=== PATIENT | female | born 1975 | race Caucasian/White ===

== ENCOUNTER 2019-07-23 16:56 | Emergency (ER) | payer SELFPAY ==
[2019-07-23] MEDS ORDERED: Lidocaine 1% 10 ML MDV INJECT ONE (17:49)
[2019-07-23] MEDS ORDERED: Diphtheria,Pertussis(Acell),Tetanus Vaccine 0.5 ML Syringe IM ONE (17:49)
--- NOTE | 2019-07-23 17:55 | EDM.PDOC ---
ED HPI GENERAL MEDICAL PROBLEM - General Chief Complaint: Bite:Animal, Insect Stated Complaint: DOG BITE Time Seen by Provider: 07/23/19 17:39 Source of Information: Reports: Patient, RN Notes Reviewed History Limitations: Reports: No Limitations - History of Present Illness INITIAL COMMENTS - FREE TEXT/NARRATIVE: Patient is a 43-year-old female who presents to the ED for evaluation of a dog bite of her right forearm. Patient notes that they are fostering a dog, and she was trying to break up a dogfight that resulted between their dog and this foster dog. Patient notes that both animals are up-to-date on their vaccinations. The patient was bit on the right forearm, she has one 1 cm wound to the volar aspect and one 1 cm wound to the dorsal aspect of her forearm. Patient notes that she is not sure of her last tetanus vaccination. Patient states she is still able to move her wrist, but is somewhat painful to do so, pulses are good, she has no numbness or tingling distal to the injury. Patient is right-hand dominant. Right Wrist Pain Score (Numeric/FACES): 5 - Related Data Allergies Allergy/AdvReac Type Severity Reaction Status Date / Time No Known Allergies Allergy Verified 07/23/19 17:29 Home Meds: Home Meds Amoxicillin/Clavulanate K [Augmentin 875-125 MG] 1 tab PO BID #14 tablet [Rx] Citalopram [Citalopram HBr] 10 mg PO DAILY 07/23/19 [History] Levothyroxine 112 mcg PO ACBREAKFAST 07/23/19 [History] metFORMIN [Glucophage] 1,000 mg PO BIDMEALS 07/23/19 [History] ED ROS GENERAL - Review of Systems Review Of Systems: Comprehensive ROS is negative, except as noted in HPI. Musculoskeletal: Denies: Joint Pain (no Right wrist pain) Skin: Reports: Wound (see HPI) Neurological: Denies: Numbness, Tingling ED EXAM, ANIMAL BITE - Physical Exam Exam: See Below Exam Limited By: No Limitations General Appearance: Alert, WD/WN, No Apparent Distress Respiratory/Chest: No Respiratory Distress, Lungs Clear, Normal Breath Sounds, No Accessory Muscle Use, Chest Non-Tender Cardiovascular: Normal Peripheral Pulses, Regular Rate, Rhythm, No Edema, No Murmur Peripheral Pulses: 3+: Radial (L), Radial (R) Extremities: Normal Inspection (with exception of lacerations), Normal Range of Motion, Normal Capillary Refill Neurological: Alert, Oriented, Normal Cognition, No Motor/Sensory Deficits Psychiatric: Normal Affect, Normal Mood Skin Exam: Normal Color, Warm/Dry, Other (2 wounds, one 1 cm laceration to the right dorsal and right anterior forearm. No active bleeding appreciated.) ED ANIMAL BITE PROCEDURES - Laceration/Wound Repair Right Anterior Distal Arm Lac/Wound Length In cm: 1 Appearance: Subcutaneous, Linear, Mildly Contaminated Distal NVT: Neuro & Vascular Intact, No Tendon Injury Anesthetic Type: Local Local Anesthesia - Lidocaine (Xylocaine): 1% Plain Local Anesthetic Volume: 3cc Skin Prep: Chlorhexidine (Hibiciens), Saline Exploration/Debridement/Repair: Wound Explored, In a Bloodless Field, Explored to Base, No Foreign Material Found Closed With: Sutures Suture Size: 5-0 # of Sutures: 3 Sterile Dressing Applied: Nurse Tetanus Status Addressed: Yes (pt received update to [facility] today) Complications: No Right Posterior Distal Arm Lac/Wound Length In cm: 1 Appearance: Subcutaneous, Mildly Contaminated Distal NVT: Neuro & Vascular Intact, No Tendon Injury Anesthetic Type: Local Local Anesthesia - Lidocaine (Xylocaine): 1% Plain Local Anesthetic Volume: 3cc Skin Prep: Chlorhexidine (Hibiciens), Saline Exploration/Debridement/Repair: Wound Explored, In a Bloodless Field, Explored to Base, No Foreign Material Found Closed With: Sutures Suture Size: 5-0 # of Sutures: 2 Sterile Dressing Applied: Nurse Tetanus Status Addressed: Yes Complications: No Course - Vital Signs Last Recorded V/S: Last Vital Signs Temp 97.8 F 07/23/19 17:30 Pulse 85 07/23/19 17:30 Resp 17 07/23/19 17:30 BP 151/98 H 07/23/19 17:30 Pulse Ox 95 07/23/19 17:30 - Orders/Labs/Meds Orders: Active Orders 24 hr Category Date Time Status Vaccines to be Administered [RC] PER UNIT ROUTINE Care 07/23/19 17:50 Ordered Meds: Medications Discontinued Medications Generic Name Dose Route Start Last Admin Trade Name Freq PRN Reason Stop Dose Admin Diphtheria/Tetanus/Acell Pertussis 0.5 ml 07/23/19 17:49 12/14/19 18:13 Adacel IM 07/23/19 17:50 0.5 ml .ONCE ONE Administration Lidocaine HCl 10 ml 07/23/19 17:49 07/23/19 18:22 Xylocaine 1% INJECT 07/23/19 17:50 10 ml ONETIME ONE Administration Departure - Departure Time of Disposition: 17:55 Disposition: Home, Self-Care 01 Condition: Fair Clinical Impression: Dog bite Qualifiers: Encounter type: initial encounter Qualified Code(s): W54.0XXA - Bitten by dog, initial encounter - Discharge Information *PRESCRIPTION DRUG MONITORING PROGRAM REVIEWED*: No *COPY OF PRESCRIPTION DRUG MONITORING REPORT IN PATIENT ANDRE: No Prescriptions: Amoxicillin/Clavulanate K [Augmentin 875-125 MG] 1 tab PO BID #14 tablet Instructions: Animal Bite, Adult, [id number] Referrals: PCP,None [Primary Care Provider] - Forms: ED Department Discharge Additional Instructions: You have been evaluated in the ED for your laceration. Sutures will need to stay in for 10 days. (08/02/19) You may return to the ED or clinic for removal. Please keep this area clean and dry, you may cleanse with regular soap and water. No vigorous scrubbing. You were given a prescription of antibiotics, Augmentin, as this was a dog bite , please take as prescribed. This antibiotic can cause some diarrhea, recommend that you take a probiotic as well while taking this, you mass the pharmacy counter to provide you with 1. Please return to ED if your symptoms change or worsen. Sepsis Event Note - Evaluation Sepsis Screening Result: No Definite Risk - Focused Exam Vital Signs: Vital Signs Temp Pulse Resp BP Pulse Ox 07/23/19 17:30 97.8 F 85 17 151/98 H 95 Date Exam was Performed: 07/23/19 Time Exam was Performed: 19:00 - My Orders Last 24 Hours: My Active Orders 07/23/19 17:50 Vaccines to be Administered [RC] PER UNIT ROUTINE - Assessment/Plan Last 24 Hours: My Active Orders 07/23/19 17:50 Vaccines to be Administered [RC] PER UNIT ROUTINE
== END 2019-07-23 19:16 | disposition home or self-care (01) ==
LOC: JD.ED 16:56
DX: S51.851A Open bite of right forearm, initial encounter (principal); Z23 Encounter for immunization; W54.0XXA Bitten by dog, initial encounter
CPT/HCPCS: 12001; 90471; 90715; 99283; J2001

== ENCOUNTER 2020-02-15 18:07 | Emergency (ER) | payer OTHER ==
--- NOTE | 2020-02-15 20:53 | EDM.PDOC ---
ED HPI GENERAL MEDICAL PROBLEM - General Chief Complaint: Abdominal Pain Stated Complaint: R SIDE ABDOMINAL PAIN Time Seen by Provider: 02/15/20 20:26 Source of Information: Reports: Patient, RN Notes Reviewed History Limitations: Reports: No Limitations - History of Present Illness INITIAL COMMENTS - FREE TEXT/NARRATIVE: Patient is a 44-year-old female who presents to the ED for the evaluation of her ongoing right-sided abdominal pain. Patient notes this is a chronic issue for her, and has been present for 4 years. Patient notes this is in the right lower quadrant, and it seems to radiate into her back at times. Patient notes she has had her appendix, gallbladder, and uterus taken out, but still retains her ovaries. She states that she does see Leigh Ann Rain as a primary care provider, and that she had a CT and recent lab work done, and everything seemed to be within normal limits, and that she was referred to a general surgeon for further management. Patient's been taking aspirin and ibuprofen for pain management but states they are just not cutting the pain any longer. She comes to the ER for pain management mostly. Patient states she is still not got any answers in 4 years on what is causing the pain. She denies any other sick-like symptoms, fever/chills, nausea/vomiting/diarrhea, states her last regular bowel movement was this morning. She does have a history of PCOS, but states they did not mention any sort of ovarian cyst on the CT yesterday. Right Lower Abdomen Pain Score (Numeric/FACES): 8 - Related Data Allergies Allergy/AdvReac Type Severity Reaction Status Date / Time No Known Allergies Allergy Verified 02/15/20 18:32 Home Meds: Home Meds Citalopram [Citalopram HBr] 10 mg PO DAILY 07/23/19 [History] Levothyroxine 112 mcg PO ACBREAKFAST 07/23/19 [History] metFORMIN [Glucophage] 1,000 mg PO BIDMEALS 07/23/19 [History] Acetaminophen/HYDROcodone [[place] 325-5 MG] 1 tab PO Q6H PRN #20 tablet 02/15/20 [Rx] Amitriptyline [Elavil] 25 mg PO DAILY 02/15/20 [History] Past Medical History Gastrointestinal History: Reports: Other (See Below) (RLQ abd pain) 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, 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 SIZER 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: polycystic ovaries Psychiatric History: Reports: Depression Endocrine/Metabolic History: Reports: Other (See Below) Other Endocrine/Metabolic History: sindi's disease - Past Surgical History GI Surgical History: Reports: Appendectomy, Cholecystectomy Female Surgical History: Reports: Section, Hysterectomy (still retains both ovaries) Endocrine Surgical History: Reports: Other (See Below) Other Endocrine Surgeries/Procedures: Partial Thyroidectomy Social & Family History - Tobacco Use Smoking Status *Q: Never Smoker - Caffeine Use Caffeine Use: Reports: Soda - Recreational Drug Use Recreational Drug Use: No ED ROS GENERAL - Review of Systems Review Of Systems: Comprehensive ROS is negative, except as noted in HPI. ED EXAM, GI/ABD - Physical Exam Exam: See Below Exam Limited By: No Limitations General Appearance: Alert, WD/WN, No Apparent Distress Throat/Mouth: Normal Inspection, Normal Lips, Normal Teeth, Normal Gums, Normal Oropharynx, Normal Voice, No Airway Compromise Head: Atraumatic, Normocephalic Neck: Normal Inspection Respiratory/Chest: No Respiratory Distress, Lungs Clear, Normal Breath Sounds, No Accessory Muscle Use, Chest Non-Tender Cardiovascular: Normal Peripheral Pulses, Regular Rate, Rhythm, No Murmur GI/Abdominal Exam: Normal Bowel Sounds, Soft, Non-Tender, No Distention, No Mass Extremities: Normal Inspection, Normal Capillary Refill Neurological: Alert, Oriented, Normal Cognition, No Motor/Sensory Deficits Psychiatric: Normal Affect, Normal Mood Skin Exam: Warm, Dry, Intact, Normal Color, No Rash Course - Vital Signs Last Recorded V/S: Last Vital Signs Temp 98 F 02/15/20 18:30 Pulse 74 02/15/20 18:30 Resp 16 02/15/20 18:30 BP 137/75 02/15/20 18:30 Pulse Ox 96 02/15/20 18:30 - Re-Assessments/Exams Free Text/Narrative Re-Assessment/Exam: 02/15/20 20:59 Patient presents to the ED for her chronic right lower abdomen pain. I do not believe repeating CT and other lab work would be of benefit tonight, I did stress to the patient that she should await for the surgeons call for further management, I will provide her with some pain medication in the meantime, to hopefully help provide her some pain relief. Patient seems to be okay with this pain at this time. She did express frustration for not having answers, unfortunately we would not be able to provide much in the way of answers as well tonight. She seems to be understanding of this at this time. Departure - Departure Time of Disposition: 20:50 Disposition: Home, Self-Care 01 Condition: Good Clinical Impression: Right sided abdominal pain - Discharge Information *PRESCRIPTION DRUG MONITORING PROGRAM REVIEWED*: Yes *COPY OF PRESCRIPTION DRUG MONITORING REPORT IN PATIENT ANDRE: No Prescriptions: Acetaminophen/HYDROcodone [[place] 325-5 MG] 1 tab PO Q6H PRN #20 tablet PRN Reason: Pain Instructions: Abdominal Pain, Adult, [id number] Referrals: Leigh Ann Rain SECURITY AND COMPLIANCE PROJECT MANAGER [Primary Care Provider] - Forms: ED Department Discharge Additional Instructions: You were evaluated in the ER today regarding your continued right-sided abdominal pain. We did not do any sort of imaging or laboratory evaluation at today's visit, as this seems to be a chronic issue for you, you will be provided with some pain medication, so you may await your call from general surgery for further evaluation. This medication will be hydrocodone/acetaminophen, 5/325mg, 1 tab every 6 hours as needed for pain relief. This medication has been electronic prescribed to the [place] [facility] in the [employer] [facility]. I highly recommend that you talk about an abdomen MRI with your primary care provider, and try your best to await call from general surgery for further management. The [facility]'s number is [phone], I do highly recommend that you call their office tomorrow, to see about the referral and/or follow-up for the general surgery consult. Please return to the ER at any time if your symptoms should change or worsen. Sepsis Event Note (ED) - Evaluation Sepsis Screening Result: No Definite Risk - Focused Exam Vital Signs: Vital Signs Temp Pulse Resp BP Pulse Ox 02/15/20 18:30 98 F 74 16 137/75 96
== END 2020-02-15 21:07 | disposition home or self-care (01) ==
LOC: JD.ED 18:07
DX: R10.31 Right lower quadrant pain (principal); F32.9 Major depressive disorder, single episode, unspecified; Z79.899 Other long term (current) drug therapy
CPT/HCPCS: 99283

== ENCOUNTER 2020-06-13 07:17 | Day surgery (SDC) | payer OTHER ==
[~2020-06-13 07:17] MED LIST: Ketamine 500 mg/10 ML MDV ONE; Lactated Ringers 1,000 ML IV SCH; Lidocaine 1% 4 ML ONE; Lidocaine 1%/Sod Bicarbonate in NS 8.4% 1 ML Syringe IDERM PRN; Propofol 200 MG/20 ML SDV ONE; Sodium Chloride 0.9% 10 ML Syringe FLUSH PRN
[2020-06-13] MEDS ORDERED: Propofol 200 MG/20 ML SDV ONE ×3 (08:12→08:39)
--- NOTE | 2020-06-13 08:14 | PCM.PREANE ---
Preanesthetic Assessment - Procedure Proposed Procedure: Colonoscopy - Anesthesia/Transfusion/Family Hx Anesthesia History: No Prior Anesthesia Family History of Anesthesia Reaction: No Additional History: No previous difficulties with anesthesia or with intubation per patient - Review of Systems General: No Symptoms Pulmonary: No Symptoms Cardiovascular: No Symptoms Gastrointestinal: No Symptoms Neurological: No Symptoms Other: Reports: None - Physical Assessment NPO Status Date: 06/13/20 (greater than 8 hours) Vital Signs: Last Vital Signs Temp 36.2 C 06/13/20 07:20 Pulse 76 06/13/20 07:20 Resp 16 06/13/20 07:20 BP 118/74 06/13/20 07:20 Pulse Ox 98 06/13/20 07:20 Height: 5 ft 6 in Weight: 112.491 kg ASA Class: 3 Mental Status: Alert & Oriented x3 Airway Class: Mallampati = 3 Dentition: Reports: Normal Dentition Thyro-Mental Finger Breadths: 3 Mouth Opening Finger Breadths: 3 ROM/Head Extension: Full Lungs: Clear to Auscultation, Normal Respiratory Effort Cardiovascular: Regular Rate, Regular Rhythm - Allergies Allergies/Adverse Reactions: Allergies Allergy/AdvReac Type Severity Reaction Status Date / Time acetaminophen [From Percocet] Allergy Itching Verified 06/12/20 11:35 oxycodone [From Percocet] Allergy Itching Verified 06/12/20 11:35 - Anesthesia Plan Pre-Op Medication Ordered: None - Acknowledgements Anesthesia Type Planned: MAC Pt an Appropriate Candidate for the Planned Anesthesia: Yes Alternatives and Risks of Anesthesia Discussed w Pt/Guardian: Yes Pt/Guardian Understands and Agrees with Anesthesia Plan: Yes PreAnesthesia Questionnaire HEENT History: Reports: None Cardiovascular History: Reports: None Respiratory History: Reports: Sleep Apnea Gastrointestinal History: Reports: GERD Genitourinary History: Reports: Renal Disease (renal cell carcinoma of right kidney with partial nephrectomy), Other (See Below) Other Genitourinary History: chronic kidney disease [employer]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 (See Below) Other OB/BYN History: PCOS Musculoskeletal History: Reports: None Neurological History: Reports: None Psychiatric History: Reports: Anxiety, Depression Endocrine/Metabolic History: Reports: Hypothyroidism Other Endocrine/Metabolic History: sindi's disease Hematologic History: Reports: None Immunologic History: Reports: None Oncologic (Cancer) History: Reports: Renal Dermatologic History: Reports: None - Infectious Disease History Infectious Disease History: Reports: None - Past Surgical History GI Surgical History: Reports: Appendectomy, Cholecystectomy Female Surgical History: Reports: Section, Hysterectomy, Nephrectomy Endocrine Surgical History: Reports: Thyroidectomy - SUBSTANCE USE Tobacco Use Status *Q: Never Tobacco User Recreational Drug Use History: No - HOME MEDS Home Medications: Home Meds Citalopram [Citalopram HBr] 20 mg PO DAILY 07/23/19 [History] metFORMIN [Glucophage] 1,000 mg PO BIDMEALS 07/23/19 [History] Acetaminophen/HYDROcodone [[place] 325-5 MG] 1 tab PO Q6H PRN #20 tablet 02/15/20 [Rx] Amitriptyline [Elavil] 25 mg PO DAILY 02/15/20 [History] Biotin 10 mg PO DAILY 06/12/20 [History] Fexofenadine [Ghada] 180 mg PO DAILY 06/12/20 [History] Iron,Carb/Vit C/Vit B12/Folic [Fe C Plus Tablet] 1 tab PO DAILY 06/12/20 [History] L.acidoph,Paracasei, B.lactis [Probiotic] 2 cap PO DAILY 06/12/20 [History] Levothyroxine 125 mcg PO DAILY 06/12/20 [History] Turmeric 2 tab PO DAILY 06/12/20 [History] Vitamin B Complex [B Complex] 1 tab PO DAILY 06/12/20 [History] - CURRENT (IN HOUSE) MEDS Current Meds: Current Medications Lactated Ringer's (Ringers, Lactated) 1,000 mls @ 125 mls/hr IV ASDIRECTED FRANK Stop: 06/13/20 23:00 Last Admin: 06/13/20 07:25 Dose: 125 mls/hr Documented by: Lidocaine/Sodium Bicarbonate (Buffered Lidocaine 1% In Ns 8.4%) 0.25 ml IDERM ONETIME PRN PRN Reason: Prior to IV Start Stop: 06/13/20 18:00 Last Admin: 06/13/20 07:25 Dose: 0.25 ml Documented by: Sodium Chloride (Saline Flush) 10 ml FLUSH ASDIRECTED PRN PRN Reason: Keep Vein Open Stop: 06/13/20 18:00 Discontinued Medications Lidocaine HCl (Xylocaine-Mpf 1%) Confirm Administered Dose 4 mls @ as directed .ROUTE .STK-MED ONE Stop: 06/13/20 07:12 Ketamine HCl (Ketalar) Confirm Administered Dose 500 mg .ROUTE .STK-MED ONE Stop: 06/13/20 07:13 Propofol (Diprivan 20 Ml) Confirm Administered Dose 400 mg .ROUTE .STK-MED ONE Stop: 06/13/20 07:12
--- NOTE | 2020-06-13 08:58 | PCM.OPNOTE ---
- General Post-Op/Procedure Note Date of Surgery/Procedure: 06/13/20 Operative Procedure(s): colonoscopy Findings: Irregular mucosa in the hepatic flexure Pre Op Diagnosis: Change in bowel habits Post-Op Diagnosis: Same Anesthesia Technique: MAC Primary Surgeon: Candice Jessica Anesthesia Provider: Ariel Quiñones Pathology: 1. Ascending and transverse colon biopsies 2. Hepatic flexure biopsies 3. Descending and sigmoid colon biopsies Fluid Replacement, Intraop: 1,000 Output, Urine Amount: 0 EBL in mLs: 0 Complications: None apparent Condition: Good
--- NOTE | 2020-06-13 09:02 | PCM.PRNOTE ---
- Free Text/Narrative Note: Operative Report Date of Surgery/Procedure: June Operative Procedure: Colonoscopy to cecum with biopsy Pre Op Diagnosis: change in bowel habits Post-Op Diagnosis: same Surgeon: Candice Jessica MD Anesthesia Technique: MAC Anesthesia Provider: Ariel Quiñones MD IV Fluid Replacement, Intraop: 1000cc Output, Urine Amount: 0cc EBL : 0cc Findings: Irregular hepatic flexure mucosa Specimens: 1. Ascending and transverse colon biopsies 2. Hepatic flexure biopsies 3. Descending and sigmoid colon biopsies Indication: The patient is a 44-year-old lady who presented to the outpatient clinic requesting evaluation of change in bowel habits. We discussed the procedure of a screening colonoscopy including the polypectomy and biopsy. Risks of bleeding and perforation were discussed, the patient understood and wished to proceed. Written and consent was obtained Description of the procedure: The patient was brought to the endoscopy suite and placed in the left lateral decubitus position. Appropriate monitors were applied. The patient was given MAC anesthesia. An anorectal examination was performed, revealing no abnormalities. The scope was placed into the rectum and advanced to cecum with some difficulty requiring application of external abdominal pressure. The patients cecum was entered, and the ileocecal valve and appendiceal orifice were identified and normal. At this point, the scope was withdrawn, paying careful attention to the mucosa. The patient had had bowel prep, allowing for visualization of 85-90% of the mucosa with suctioning. Patchy, erythematous, irregular mucosa was noted at the hepatic flexure, this was biopsied using cold biopsy forceps. Random biopsies were taken in the ascending, transverse, descending, and sigmoid colon using the cold biopsy forceps. In the rectum, the scope was retroflexed and no abnormalities were noted, except for some hemorrhoidal tissue. The scope was placed back in the lumen and the excess air was aspirated. The patient tolerated the procedure well. Complications: none apparent Condition: Good, transported to PACU in stable condition Candice Jessica MD General Surgery
--- NOTE | 2020-06-13 09:42 | PCM48HPAN ---
Post Anesthesia Note - EVALUATION WITHIN 48HRS OF ANESTHETIC Vital Signs in Normal Range: Yes Patient Participated in Evaluation: No Respiratory Function Stable: Yes Airway Patent: Yes Cardiovascular Function Stable: Yes Hydration Status Stable: Yes Pain Control Satisfactory: Yes Nausea and Vomiting Control Satisfactory: Yes Mental Status Recovered: Yes Vital Signs: Last Vital Signs Temp 36.1 C 06/13/20 08:53 Pulse 64 06/13/20 09:21 Resp 16 06/13/20 09:21 BP 114/72 06/13/20 09:21 Pulse Ox 97 06/13/20 09:21 - COMMENTS/OBSERVATIONS Free Text/Narrative:: Routine recovery post MAC/colonoscopy. Patient free to go home when nursing has completed their care.
== END 2020-06-13 09:30 | disposition home or self-care (01) ==
LOC: JD.SDS 07:17
PROVIDERS: ATTEND Surgery
DX: K63.89 Other specified diseases of intestine (principal); K64.9 Unspecified hemorrhoids; E11.9 Type 2 diabetes mellitus without complications; K21.9 Gastro-esophageal reflux disease without esophagitis; Z90.49 Acquired absence of other specified parts of digestive tract; Z88.8 Allergy status to other drugs, medicaments and biological substances; S31.109D Unspecified open wound of abdominal wall, unspecified quadrant without penetration into peritoneal cavity, subsequent encounter; X58.XXXD Exposure to other specified factors, subsequent encounter; E03.9 Hypothyroidism, unspecified; Z79.899 Other long term (current) drug therapy
CPT/HCPCS: J2001; J2704; J7120

== ENCOUNTER 2021-05-27 21:19 | Emergency (ER) | payer OTHER ==
--- NOTE | 2021-05-28 00:30 | EDM.PDOC ---
ED HPI GENERAL MEDICAL PROBLEM - General Chief Complaint: Respiratory Problem Stated Complaint: COVID+/SOB Time Seen by Provider: 05/28/21 00:28 Source of Information: Reports: Patient History Limitations: Reports: No Limitations - History of Present Illness INITIAL COMMENTS - FREE TEXT/NARRATIVE: Patient is 45-year-old female with a past medical history of Sindi's thyroiditis and renal cell carcinoma, presented to emergency room with chief complaint of shortness of breath. Patient states has been sick since last . She states she has been feeling fatigued, body aches, nausea and has had a loss of taste and smell. Patient reports that today, she received a diagnosis of COVID-19. Later in the day she became short of breath. Patient states she feels pain in the middle of her chest when she takes a deep breath. Patient denies any vomiting or diarrhea or abdominal pain. Treatments ZIPPER CUTTER: Reports: Other (see below) Other Treatments ZIPPER CUTTER: tylenol Headache Pain Score (Numeric/FACES): 8 Generalized Pain Score (Numeric/FACES): 10 Throat Pain Score (Numeric/FACES): 5 - Related Data Allergies Allergy/AdvReac Type Severity Reaction Status Date / Time acetaminophen [From Percocet] Allergy Severe Itching Verified 05/27/21 22:15 oxycodone [From Percocet] Allergy Severe Itching Verified 05/27/21 22:15 Home Meds: Home Meds Citalopram [Citalopram HBr] 20 mg PO DAILY 07/23/19 [History] metFORMIN [Glucophage] 1,000 mg PO BIDMEALS 07/23/19 [History] Amitriptyline [Elavil] 25 mg PO DAILY 02/15/20 [History] Iron,Carb/Vit C/Vit B12/Folic [Fe C Plus Tablet] 1 tab PO DAILY 06/12/20 [History] Levothyroxine 125 mcg PO DAILY 06/12/20 [History] Vitamin B Complex [B Complex] 1 tab PO DAILY 06/12/20 [History] Past Medical History HEENT History: Reports: None Cardiovascular History: Reports: None Respiratory History: Reports: Sleep Apnea Gastrointestinal History: Reports: GERD Genitourinary History: Reports: Renal Disease, Other (See Below) Other Genitourinary History: chronic kidney disease LANDS RESOURCE MANAGER History: Reports: Other (See Below) 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 [employer]S RESOURCE MANAGER History: PCOS Musculoskeletal History: Reports: None Neurological History: Reports: None Psychiatric History: Reports: Anxiety, Depression Endocrine/Metabolic History: Reports: Hypothyroidism Other Endocrine/Metabolic History: sindi's disease Hematologic History: Reports: None Immunologic History: Reports: None Oncologic (Cancer) History: Reports: Renal Dermatologic History: Reports: None - Infectious Disease History Infectious Disease History: Reports: None, Novel Coronavirus - Past Surgical History GI Surgical History: Reports: Appendectomy, Cholecystectomy Female Surgical History: Reports: Section, Hysterectomy, Nephrectomy Other Female Surgeries/Procedures: Pt had uterus removed. Endocrine Surgical History: Reports: Thyroidectomy Other Endocrine Surgeries/Procedures: Partial Thyroidectomy Social & Family History - Tobacco Use Tobacco Use Status *Q: Never Tobacco User - Caffeine Use Caffeine Use: Reports: Soda - Recreational Drug Use Recreational Drug Use: No ED ROS GENERAL - Review of Systems Review Of Systems: See Below Free Text/Narrative/Comment: In addition to that documented in the HPI above, the additional ROS was obtained: Constitutional: Denies fevers or chills Eyes: Denies vision changes ENMT: Denies sore throat CV: Denies chest pain Resp: Per HPI GI: Denies vomiting or diarrhea : Denies painful urination MSK: Denies recent trauma Skin: Denies new rashes Neuro: Denies new numbness or tingling or weakness Endocrine: Denies unexpected weight loss Heme: Denies bleeding disorders ED EXAM, GENERAL - Physical Exam Exam: See Below Free Text/Narrative:: I have reviewed the triage vital signs Const: Well nourished, well developed, appears stated age Eyes: Pupils Equal and reactive to light bilaterally, no conjunctival injection HENT: No signs of trauma or swelling, Neck supple without meningismus CV: Mild tachycardia with regular rhythm, Warm, well-perfused extremities RESP: Unlabored respiratory effort GI: soft, non-tender, non-distended, no masses MSK: No gross deformities appreciated Skin: Warm, dry. No rashes Neuro: Alert, medication specialist II-XII grossly intact. Sensation and motor function of extremities grossly intact. Psych: Appropriate mood and affect. Course - Vital Signs Last Recorded V/S: Last Vital Signs Temp 37.2 C 05/27/21 22:09 Pulse 114 H 05/27/21 22:09 Resp 24 H 05/27/21 22:09 BP 145/86 H 05/27/21 22:09 Pulse Ox 93 L 05/27/21 22:09 - Orders/Labs/Meds Orders: Active Orders 24 hr Category Date Time Status Chest 1V Frontal [CR] Stat Exams 05/28/21 00:28 Taken Labs: Laboratory Tests 05/28/21 05/28/21 05/28/21 Range/Units 00:57 00:57 00:57 WBC 5.28 (3.98-10.04) K/mm3 RBC 4.71 (3.98-5.22) M/mm3 Hgb 14.2 (11.2-15.7) gm/dl Hct 42.1 (34.1-44.9) % MCV 89.4 (79.4-94.8) fl MCH 30.1 (25.6-32.2) pg MCHC 33.7 (32.2-35.5) g/dl RDW Std Deviation 43.0 (36.4-46.3) fL Plt Count 229 (182-369) K/mm3 MPV 9.6 (9.4-12.3) fl Neut % (Auto) 59.5 (34.0-71.1) % Lymph % (Auto) 33.5 (19.3-51.7) % [place] % (Auto) 6.4 (4.7-12.5) % Eos % (Auto) 0.2 L (0.7-5.8) Baso % (Auto) 0.2 (0.1-1.2) % Neut # (Auto) 3.14 (1.56-6.13) K/mm3 Lymph # (Auto) 1.77 (1.18-3.74) K/mm3 [place] # (Auto) 0.34 (0.24-0.36) K/mm3 Eos # (Auto) 0.01 L (0.04-0.36) K/mm3 Baso # (Auto) 0.01 (0.01-0.08) K/mm3 Manual Slide Review Normal smear D-Dimer, Quantitative 0.55 H (0.19-0.50) mg/L Sodium 134 L (136-145) mEq/L Potassium 4.0 (3.5-5.1) mEq/L Chloride 99 (98-107) mEq/L Carbon Dioxide 23 (21-32) mEq/L Anion Gap 16.0 H (5-15) BUN 8 (7-18) mg/dL Creatinine 0.9 (0.55-1.02) mg/dL Est Cr Clr Drug Dosing 73.90 mL/min Estimated GFR (MDRD) > 60 (>60) mL/min BUN/Creatinine Ratio 8.9 L (14-18) Glucose 120 H (70-99) mg/dL Calcium 8.6 (8.5-10.1) mg/dL Total Bilirubin 0.3 (0.2-1.0) mg/dL AST 36 (15-37) U/L ALT 52 (14-59) U/L Alkaline Phosphatase 53 (46-116) U/L C-Reactive Protein 1.7 H* (<1.0) mg/dL Total Protein 7.5 (6.4-8.2) g/dl Albumin 3.6 (3.4-5.0) g/dl Globulin 3.9 gm/dL Albumin/Globulin Ratio 0.9 L (1-2) Departure - Departure Time of Disposition: 01:47 Disposition: Home, Self-Care 01 Clinical Impression: Pneumonia due to COVID-19 virus - Discharge Information Referrals: Leigh Ann Rain NP [Primary Care Provider] - Forms: ED Department Discharge Sepsis Event Note (ED) - Focused Exam Vital Signs: Vital Signs Temp Pulse Resp BP Pulse Ox 05/27/21 22:09 37.2 C 114 H 24 H 145/86 H 93 L - My Orders Last 24 Hours: My Active Orders 05/28/21 00:28 Chest 1V Frontal [CR] Stat - Assessment/Plan Last 24 Hours: My Active Orders 05/28/21 00:28 Chest 1V Frontal [CR] Stat Assessment:: Patient is a 45-year-old female presenting to the emergency room with cough and shortness of breath. Patient did test positive for COVID-19 earlier today. Patient demonstrates some initial tachycardia but no evidence of hypoxia. Patient clinically well in appearance. Laboratory studies performed. Minimally elevated D-dimer and CRP associated with early Covid pneumonia. No evidence of pulmonary embolism based on this evaluation. Patient will be discharged with outpatient follow-up. Return precautions given his usual. Patient agrees with plan of care.
--- NOTE | 2021-05-28 07:26 | CR ---
Chest: Frontal view of the chest was obtained. Comparison: No prior chest imaging is available. Slight increased density within the left mid and lower lung as well as within the right lower lung. Heart size and mediastinum are normal. Bony structures show nothing acute. Impression: 1. Findings suspicious for mild COVID pneumonia as described above. Diagnostic code #3
== END 2021-05-28 02:12 | disposition home or self-care (01) ==
LOC: JD.ED 21:19
DX: U07.1 COVID-19 (principal); J12.82 Pneumonia due to coronavirus disease 2019; E03.9 Hypothyroidism, unspecified; Z88.5 Allergy status to narcotic agent; Z79.899 Other long term (current) drug therapy; Z86.16 Personal history of COVID-19
CPT/HCPCS: 36415; 71045; 71045-26; 80053; 85025; 85379; 86140; 99285-25